=== PATIENT | female | born 1950 | race Hispanic/Latino ===

== ENCOUNTER 2019-09-02 14:20 | Inpatient (IN) | payer SELFPAY ==
[~2019-09-02] VITALS: Ht 162.6 cm; Wt 52.0 kg
[~2019-09-02 14:20] MED LIST: GLIPIZIDE5 M2 PO; KEFLEX500 M1 PO; METFORMIN500 MG PO
--- NOTE | 2019-09-02 14:25 | NUR ---
PT TO ROOM VIA WC FOR TRIAGE
--- NOTE | 2019-09-02 15:20 | NUR ---
PT RESTING ON STRETCHER; NO S/S OF DISTRESS NOTED; MONITORING DEVICES IN PLACE; VSS; WILL CONTINUE TO MONITOR
[2019-09-02 15:56] LABS: HEMATOCRIT 37.1 % (37.0-47.0); HEMOGLOBIN 12.3 g/dl (12.0-16.0); IMMATURE GRANULOCYTES 0.5 % (0.0-5.0); MEAN CELL VOLUME 91.4 fL CALC (80.0-100.0); MEAN CORPUSCULAR HGB 30.3 pG CALC (26.0-32.0); MEAN CORPUSCULAR HGB CONC 33.2 g/dL CAL (32.0-36.0); NEUT# 9.98 thou/uL (2.00-7.15); RED BLOOD COUNT 4.06 mill/uL (4.20-5.60); RED CELL DISTRI WIDTH 12.3 % (11.5-15.5)
[2019-09-02 16:12] LABS: ALBUMIN 2.9 g/dL (3.2-5.0); BILIRUBIN, TOTAL 0.7 mg/dL (0.0-1.4); CREATININE 1.2 mg/dL (0.5-1.0)
[2019-09-02 16:19] LABS: TOTAL PROTEIN 6.1 g/dL (6.3-8.2)
--- NOTE | 2019-09-02 16:20 | NUR ---
PT RESTING ON STRETCHER; NO S/S OF DISTRESS NOTED; FLUIDS GIVEN; PT DENIES ANY NEEDS AT THIS TIME; WILL CONTINUE TO MONITOR
--- NOTE | 2019-09-02 17:20 | NUR ---
PT RESTING ON STRETCHER; NO S/S OF DISTRESS NOTED; VSS; O2 NC IN PLACE; IV ANTIBIOTICS INFUSING; CALL LIGHT WITHIN REAHC; WILL CONTINUE TO MONITOR
--- NOTE | 2019-09-02 18:04 | NUR ---
PT RETURNED FROM RADIOLOGY; MONITORING DEVICES REAPPLIED; WILL CONTINUE TO MONITOR
--- NOTE | 2019-09-02 18:35 | NUR ---
PT MEDICATED AT THIS TIME FOR TEMP 101.4; PT ADVISED OF CONTINUED WAIT TIME; VSS; WILL CONTINUE TO MONITOR-
--- NOTE | 2019-09-02 18:57 | NUR ---
REPORT GIVEN TO MARIO TAYLOR
--- NOTE | 2019-09-02 19:10 | NUR ---
EKG COMPLETED AND SHOWN TO DR. VILLA. PT RESTING. VSS. RESP EASY REG. SR. ANTIBIOTICS INFUSING.
--- NOTE | 2019-09-02 19:29 | NUR ---
REPORT TO ALEXA MARTIN.
--- NOTE | 2019-09-02 19:36 | NUR ---
TO FLOOR VIA STRETCHER WITH O2 AND 2ND BAG OF ATIBIOTICS. PT HAS POCKET MONITOR ON. A/O. NAD.
[2019-09-02 19:50] VITALS: BP 99/56
[2019-09-02 19:50] LABS: URINE BILIRUBIN - DIPSTICK NEGATIVE (NEGATIVE); URINE BLOOD DIPSTICK SMALL (NEGATIVE); URINE COLOR YELLOW; URINE GLUCOSE - DIPSTICK NEGATIVE (NEGATIVE); URINE KETONE NEGATIVE (NEGATIVE); URINE LEUK ESTERASE NEGATIVE (NEGATIVE); URINE NITRITE - DIPSTICK NEGATIVE (Negative); URINE PROTEIN - DIPSTICK 100 mg/dL (NEG-TRACE); URINE SPECIFIC GRAVITY 1.025
--- NOTE | 2019-09-02 19:50 | NUR ---
PT ARRIVED TO THE FLOOR VIA STRETCHER ACCOMPANIED BY ED STAFF. RESPIRATIONS EVEN AND UNLABORED ON O2 @ 2L VIA NC. LUNGS SOUND DIMINISHED. PEDAL PULSES WEAK. PT DENIES ANY PAIN OR DISCOMFORT AT THIS TIME. IRIS FROM REGISTRATIONS TRANSLATED. PT ORIENTED TO ROOM AND CALL [employer]. SAFETY PRECAUTIONS IN PLACE. WILL CONTINUE TO MONITOR.
[2019-09-02 19:52] LABS: URINE SQUAMOUS EPITHELIAL CELL FEW EPI/hpf (0-FEW)
--- NOTE | 2019-09-03 00:05 | NUR ---
PT ARRIVED TO THE FLOOR VIA WHEEL CHAIR ACCOMPANIED BY ED STAFF. PT ALERT AND ORIETNED, PT AMBULATED FROM WHEEL CHAIR TO THE BED. RESPIRATIONS EVEN AND UNLABORED ON RA. ASSESSMENT COMPLETED AND VITAL SIGNS OBTAINED. PT DENIES ANY PAIN OR DISCOMFORT AT THIS TIME. PT ORIENTED TO ROOM AND CALL [employer]. SAFETY PRECAUTIONS IN PLACE, WILL CONTINUE TO MONITOR.
--- NOTE | 2019-09-03 00:50 | NUR ---
PT RESTING IN BED, NO S/S OF DISTRESS AT THIS TIME. SAFETY PRECAUTIONS IN PLACE. WILL CONTINUE TO MONTIOR.
[2019-09-03 00:59] VITALS: BP 91/59
[2019-09-03 05:15] VITALS: BP 131/78
--- NOTE | 2019-09-03 05:15 | NUR ---
PT RESTING IN BED RESPIRATIONS EVEN AND UNLABORED ON O2 @ 2L VIA NC. VS OBTAINED AND LABS DRAWN AT THIS TIME. SAFETY PRECAUTIONS IN PLACE. WILL CONTINUE TO MONTIOR.
[2019-09-03 05:56] LABS: HEMATOCRIT 36.3 % (37.0-47.0); HEMOGLOBIN 11.8 g/dl (12.0-16.0); IMMATURE GRANULOCYTES 0.7 % (0.0-5.0); MEAN CELL VOLUME 93.8 fL CALC (80.0-100.0); MEAN CORPUSCULAR HGB 30.5 pG CALC (26.0-32.0); MEAN CORPUSCULAR HGB CONC 32.5 g/dL CAL (32.0-36.0); NEUT# 12.39 thou/uL (2.00-7.15); RED BLOOD COUNT 3.87 mill/uL (4.20-5.60); RED CELL DISTRI WIDTH 12.4 % (11.5-15.5)
[2019-09-03 06:06] LABS: PROTHROMBIN TIME 10.1 SECONDS (9.0-12.5)
[2019-09-03 06:09] LABS: ALBUMIN 2.8 g/dL (3.2-5.0); CREATININE 1.3 mg/dL (0.5-1.0); POTASSIUM 4.5 mmol/l (3.5-5.1); TOTAL PROTEIN 5.9 g/dL (6.3-8.2)
[2019-09-03 06:15] LABS: BILIRUBIN, TOTAL 0.4 mg/dL (0.0-1.4)
[2019-09-03 06:45] LABS: C-REACTIVE PROTEIN 12.7 mg/dL (0-0.9)
--- NOTE | 2019-09-03 08:00 | NUR ---
PT RESTING IN BED, NO SIGNS OF DISTRESS NOTED, RESP EVEN AND UNLABORED. PROVIDED PT BREAKFAST, PT C/O HEADACHE, PT MEDICATED PER MAR. VITALS OBTAINED. DISCUSSED POC, ASSESSMENT COMPLETED, CALL LIGHT IN REACH,CONTINUE TO MONITOR.
[2019-09-03 08:04] VITALS: BP 122/65
--- NOTE | 2019-09-03 10:57 | NUR ---
MD AT BEDSIDE, PT SATS 95% ON 02 4L NC, PER MD REQUESTS TO KNOW PT ON RA, 02 REMOVED PT SATS DROPPED TO 87%RA. REPLACED NC, AND TITRATED 02 FOR PT TO REACH 92%. 02 @ 3L NC. RESP EVEN AND UNLABORED. NO SIGNS OF DISTRESS NOTED, VITALS OBTAINED. PT VOICES NO NEEDS OR COMPLAINTS AT THIS TIME, CALL LIGHT IN REACH,CONTINUE TO MONITOR.
[2019-09-03 11:17] VITALS: BP 104/61
--- NOTE | 2019-09-03 11:28 | NUR ---
PT SITTING IN BED EATING LUNCH, DISCUSSED SLIDING SCALE INSULIN, PT VERBALIZED UNDERSTANDING. CALL LIGHT IN REACH,CONTINUE TO MONITOR.
[2019-09-03 15:35] VITALS: BP 120/75
--- NOTE | 2019-09-03 17:09 | NUR ---
PT RESTING IN BED, DISCUSSED IV ANTIBIOTICS, PT VERBALIZED UNDERSTANDING. ROCEPHIN STARTED. PT VOICES NO NEEDS OR COMPLAINTS, CALL LIGHT IN REACH,CONTINUE TO MONITOR.
--- NOTE | 2019-09-03 17:38 | NUR ---
PT RESTING IN BED, DINNER TRAY PROVIDED, IV ZITHRO INITIATED. PT VOICES NO NEEDS OR COMPLAINTS, CALL LIGHT IN REACH,CONTINUE TO MONTIOR.
[2019-09-03 20:44] VITALS: BP 112/64
--- NOTE | 2019-09-03 21:20 | NUR ---
PT RESTING IN BED ALERT AND ORIETED. RESPIRATIONS EVEN AND UNLABORED ON O2 @ 2L VIA NC. LUNGS SOUND DIMINISHED. PEDAL PULSES WEAK. PT DENIES ANY PAIN OR DISCOMFORT AT THIS TIME. SAFETY PRECAUTIONS IN PLACE. WILL CONTINUE TO MONITOR.
[2019-09-04] VITALS (7 sets, daily range): BP systolic 106–147; BP diastolic 63–83
--- NOTE | 2019-09-04 00:07 | NUR ---
PT RESTING IN BED. NO S/S OF DISTRESS AT THIS TIME. TELE IN PLACE. WILL CONTINUE TO MONITOR.
--- NOTE | 2019-09-04 04:20 | NUR ---
PT RESTING IN BED. TELE IN PLACE. NO S/S OF DISTRESS AT THIS TIME. SAFETY PRECAUTIONSIN PLACE. WILL CONTINUE TO MONITOR.
[2019-09-04 05:08] LABS: HEMOGLOBIN 12.4 g/dl (12.0-16.0); IMMATURE GRANULOCYTES 1.4 % (0.0-5.0); MEAN CELL VOLUME 93.8 fL CALC (80.0-100.0); MEAN CORPUSCULAR HGB 29.8 pG CALC (26.0-32.0); MEAN CORPUSCULAR HGB CONC 31.8 g/dL CAL (32.0-36.0); NEUT# 7.75 thou/uL (2.00-7.15); RED BLOOD COUNT 4.16 mill/uL (4.20-5.60); RED CELL DISTRI WIDTH 12.4 % (11.5-15.5)
[2019-09-04 05:19] LABS: ALBUMIN 2.8 g/dL (3.2-5.0); BILIRUBIN, TOTAL 0.4 mg/dL (0.0-1.4); CREATININE 1.2 mg/dL (0.5-1.0); POTASSIUM 4.7 mmol/l (3.5-5.1); TOTAL PROTEIN 5.8 g/dL (6.3-8.2)
[2019-09-04 05:32] LABS: C-REACTIVE PROTEIN 14.8 mg/dL (0-0.9)
[2019-09-04 06:26] LABS: INTERNATIONAL NORMALIZED RATIO 0.9 RATIO (0.7-1.3); PROTHROMBIN TIME 9.8 SECONDS (9.0-12.5)
--- NOTE | 2019-09-04 08:45 | NUR ---
ASSESSMENT IS COMPLETED: IV SITE IS FREE FROM REDNESS OR EDEDEMA. HR IS REG,PULSES ARE STRONG X4, ABD IS SOFT WITH ACTIVE BS. BREATH SOUNDS ARE DIMINISHED AND CLEAR. TELE MONITOR IN PLACE. CONTINUE TO OSBERVE AND MONITOR.
--- NOTE | 2019-09-04 12:20 | NUR ---
DIPIKA SANDOVAL FROM [employer] INTERPRET RE: DIETARY AND DISCHARGE PLANNING PAPERS FROM JAROCHO CASAS RN. VERBALIZED UNDERSTANDING.
--- NOTE | 2019-09-04 12:45 | NUR ---
PT IS RELAXING IN BED WITH NO DISTRESS NOTED. IV SITE IS FREE FROM REDNESS OR EDEMA. CONTINUE TO OBSERVE AND MONITOR. TELE MONITOR IN PLACE.
--- NOTE | 2019-09-04 16:15 | NUR ---
PT IS RELAXING IN BED WITH NO DISTRESS NOTED. IV SITE IS FREE FROM REDNESS OR EDEMA.
--- NOTE | 2019-09-04 21:19 | NUR ---
PT MEDICATED ORDERS PROVIDE. ASSESSMENT COMPLETED AT THIS TIME. PT DENIES ANY NEEDS. NO S/O DISTRESS NOTED. WILL CONTINUE TO MONITOR.
[2019-09-05] VITALS (7 sets, daily range): BP systolic 115–136; BP diastolic 68–81
--- NOTE | 2019-09-05 02:00 | NUR ---
PT SLEEPING, NO S/O DISTRESS NOTED.
--- NOTE | 2019-09-05 04:35 | NUR ---
PT LABS DRAWN AND NEW IV SITE OBTAINED. PT TOLERATED WELL. DENIES ANY OTHER NEEDS AT THIS TIME. GOLF TECHNICIAN IN W/PT OBTAINING V/S
[2019-09-05 06:42] LABS: HEMATOCRIT 38.3 % (37.0-47.0); HEMOGLOBIN 12.4 g/dl (12.0-16.0); IMMATURE GRANULOCYTES 1.1 % (0.0-5.0); MEAN CELL VOLUME 94.3 fL CALC (80.0-100.0); MEAN CORPUSCULAR HGB 30.5 pG CALC (26.0-32.0); MEAN CORPUSCULAR HGB CONC 32.4 g/dL CAL (32.0-36.0); NEUT# 4.55 thou/uL (2.00-7.15); RED BLOOD COUNT 4.06 mill/uL (4.20-5.60); RED CELL DISTRI WIDTH 12.6 % (11.5-15.5)
[2019-09-05 07:15] LABS: ALBUMIN 2.7 g/dL (3.2-5.0); ALKALINE PHOSPHATASE 86 u/l (38-126); BUN 22 mg/dL (8-23); BUN/CREATININE RATIO 29 (12-20 (CALC)); C-REACTIVE PROTEIN 5.8 mg/dL (0-0.9); CARBON DIOXIDE 26 mmol/l (22-30); CHLORIDE 105 mmol/l (95-108); CREATININE 0.8 mg/dL (0.5-1.0); GFR > 60 ML/MIN (>=60 (CALC)); GFR FOR AFR.AMER. > 60 ML/MIN (>=60 (CALC)); SGOT/AST 32 u/l (9-36); SODIUM 137 mmol/l (137-146); TOTAL PROTEIN 5.9 g/dL (6.3-8.2)
[2019-09-05 07:30] LABS: BILIRUBIN, TOTAL 0.6 mg/dL (0.0-1.4)
--- NOTE | 2019-09-05 07:45 | NUR ---
ASSESSMENT IS COMPLETED: IV SITE IS FREE FROM REDNESS OR EDEMA. HR IS REG,PULSES ARE STRONG X4, ABD IS SOFT WITH ACTIVE BS. BREATH SOUNDS ARE CLEAR AND DIMINISHED. TELE MONITOR IN PLACE. CONTINUE TO OSBERVE AND MONITOR. PT IS ON O2@ 3LITERS WITH NC. C/O SORE THROAT THIS AM.
--- NOTE | 2019-09-05 09:00 | NUR ---
HAD DAYANA FROM [employer] INTERPRET TO PT RE: THROAT LOZENGE FROM SORE THROAT. VERBALIZED UNDERSTANDING.
--- NOTE | 2019-09-05 09:15 | NUR ---
SPOKE WITH RAÚL MONAHAN RE: PT/INR IF CAN BE ADDED ON TO THE D DIMER TUBE THAT WAS DRAWN THIS AM. INFORMED LAB
--- NOTE | 2019-09-05 12:15 | NUR ---
PT IS RELAXING IN BED WITH NO DISTRESS NOTED. IV SITE IS FREE FROM REDNESS OR EDEMA. TELE MONITOR IN PLACE. CONTINUE TO OBSERVE AND MONITOR.
--- NOTE | 2019-09-05 13:17 | NUR ---
POSITIVE COVID TEST RESULTS COMMUNICATED TO RAÚL OVIEDO APRN.
[2019-09-05 14:10] LABS: ANION GAP 12 (6-22 (CALC))
[2019-09-05 14:20] LABS: POTASSIUM 5.6 mmol/l (3.5-5.1)
--- NOTE | 2019-09-05 16:14 | NUR ---
PT IS RELAXING IN BED WITH NO DISTRESS NOTED. IV SITE IS FREE FROM REDNESS OR EDEMA.
--- NOTE | 2019-09-05 21:40 | NUR ---
PT ASSESSMENT COMPLETED AND MEDICATION ADMINISTERED ORDERS PROVIDE. NO S/O DISTRESS NOTED. PT DENIES ANY NEEDS, BUT HAS BEEN ENCOURAGED TO CALL. LUNG SOUNDS ARE DIMINISHED THROUGHTOUT, PT REPORTS RUNNY STOOL X2 EARLIER THIS DAY, DENIES DIFFICULTY URINATING. WILL CONTINUE TO MONITOR FOR NEEDS.
--- NOTE | 2019-09-05 23:50 | NUR ---
AIDE IN OBTAINING V/S, PT DENIES ANY NEEDS AT THIS TIME.
[2019-09-06 03:25] VITALS: BP 147/81
--- NOTE | 2019-09-06 03:30 | NUR ---
BLOOD DRAWN FOR LABS, PT TOLERATED WELL. NO S/O DISTRESS, DENIES ANY OTHER NEEDS. CALL LIGHT AT BEDSIDE AND PT ENCOURAGED TO CALL NEEDS ARISE.
[2019-09-06 05:20] LABS: HEMATOCRIT 37.6 % (37.0-47.0); HEMOGLOBIN 12.1 g/dl (12.0-16.0); IMMATURE GRANULOCYTES 1.3 % (0.0-5.0); MEAN CELL VOLUME 93.1 fL CALC (80.0-100.0); MEAN CORPUSCULAR HGB CONC 32.2 g/dL CAL (32.0-36.0); NEUT# 4.15 thou/uL (2.00-7.15); RED BLOOD COUNT 4.04 mill/uL (4.20-5.60)
[2019-09-06 05:48] LABS: ALBUMIN 2.5 g/dL (3.2-5.0); ALKALINE PHOSPHATASE 87 u/l (38-126); ANION GAP 8 (6-22 (CALC)); BILIRUBIN, TOTAL 0.4 mg/dL (0.0-1.4); BUN 22 mg/dL (8-23); BUN/CREATININE RATIO 35 (12-20 (CALC)); C-REACTIVE PROTEIN 4.6 mg/dL (0-0.9); CARBON DIOXIDE 27 mmol/l (22-30); CHLORIDE 106 mmol/l (95-108); CREATININE 0.6 mg/dL (0.5-1.0); GFR > 60 ML/MIN (>=60 (CALC)); GFR FOR AFR.AMER. > 60 ML/MIN (>=60 (CALC)); POTASSIUM 4.9 mmol/l (3.5-5.1); SGOT/AST 49 u/l (9-36); SODIUM 136 mmol/l (137-146); TOTAL PROTEIN 5.6 g/dL (6.3-8.2)
[2019-09-06 09:07] VITALS: BP 125/75
--- NOTE | 2019-09-06 09:20 | NUR ---
REPORT RECIEVED FROM MARIO RODRIGEZ. PT RESTING IN SEMI FOWLERS POSITION UPON ENTERING ROOM. INTRODUCED SELF TO PT AND DISCUSSED POC. PT IS HEBREW SPEAKING ONLY. ASSESSMENT AND VITALS COMPLETED AT THIS TIME. BP 125/75, HR 78, O2 93% ON 3L NC. LUNG SOUNDS ARE DIMINSHED. RESPIATIONS ARE EVEN AND UNLABORED. WITH NO SIGNS OF DISTRESS. HEART RHYTHM IS NORMAL WITH TELE IN PLACE. BOWEL SOUNDS ARE ACTIVE IN ALL QUADRANTS WITH NO TENDERNESS. RADIAL AND PEDAL PULSESE ARE STRONG WITRH NORMAL CAPILLARY REFILL. IV FLUSHED, SITE APPEARS HEALTHY AND PATENT. PT DENIES ANY PAIN OR DISCOMFORTS AT THIS TIME. ALL SAFTEY PRECAUTIONS ION PLACE WITH CALL LIGHT IN REACH.
[2019-09-06 11:29] VITALS: BP 120/79
--- NOTE | 2019-09-06 11:46 | NUR ---
WALKING TEST COMPLETED AT THIS TIME. RESTING PT O2 RESULTED IN 87 % ON ROOM AIR. WALKING PT SAT 85% ON ROOM AIR. RESTING BACK IN ROOM PT SAT 88% ON ROOM AIR. OXYGEN REAPPLIED TO PT AT THIS TIME, O2 SAT 95% ON 3 L NC. JHOANA NOTIFIED OF RESULTS. WILL CONTINUE TO [facility].
--- NOTE | 2019-09-06 16:00 | NUR ---
PT RESTING IN SEMI FOWLERS POSITION WATCXHING TV. BREATHING IS EVEN AND UNLABORED, NO SIGNS OF ANY DISTRESS.TELE IN PLACE. PT DENIES ANY PAIN AT THIS TIME. ALL SAFTEY P[RECAUTIONS IN PLACE WITH CALL LIGHT IN REACH. WILL CONTIUE TO MONITOR.
[2019-09-06 17:35] VITALS: BP 133/84
--- NOTE | 2019-09-06 18:20 | NUR ---
MULTIPLE ATTEMPTS MADE TO OBTAIN BLOOD SUGAR. ACCUCHECK MACHINES NOT WORKING, PT REFUSED BLOOD DRAW AND NOT ENOUGH BLOOD OBTAINED WITH FINGER STICK TO OBTAIN LAB.ACCUCHECK NOT OBTAINED AT THIS TIME.
--- NOTE | 2019-09-06 19:33 | NUR ---
REPORT FROM KENDALL BEEBE. PT RESTING IN BED. ALERT AND ORIENTED. NO APPARENT DISTRESS NOTED. DENIES ANY PAIN OR SOB. CAD ADMINISTRATOR IN PLACE. IV SITE FLUSHED, SITE APPEARS HEALTHY. O2 @ 2L/M VIA NC. DISCUSSED POC VIA CRYSTAL GROWING TECHNICIAN. PT VERBALIZED UNDERSTANDIND. PT UP OOB TO BATHROOM WITH STAND BY ASSIST. PT VOIDED WITHOUT DIFFICULTY. BACK IN BED PT DENIES ANY CURRENT WANTS OR NEEDS. CALL LIGHT WITHIN REACH. WILL CONTINUE TO MONITOR.
[2019-09-06 20:18] VITALS: BP 150/85
--- NOTE | 2019-09-06 23:48 | NUR ---
PT RESTING IN BED WITH EYES CLOSED. NO APPARENT DISTRESS NOTED. RESPIRATIONS EVEN AND UNLABORED. CALL LIGHT WITHIN REACH. WILL CONTINUE TO MONITOR.
[2019-09-07] VITALS (7 sets, daily range): BP systolic 118–144; BP diastolic 74–82
--- NOTE | 2019-09-07 03:01 | NUR ---
PT RESTING IN BED WITH EYES CLOSED. NO APPARENT DISTRESS NOTED. RESPIRATIONS EVEN AND UNLABORED. CALL LIGHT WITHIN REACH. WILL CONTINUE TO MONITOR.
--- NOTE | 2019-09-07 07:05 | NUR ---
REPORT RECEIVED FROM ABIEL HWANG.
--- NOTE | 2019-09-07 08:10 | NUR ---
PT RESTING IN SEMI FOWLERS POSITION,A&O X3;VS OBTAINED AND ASSESSMENT COMPLETED;PT NOTED TO BE MOSTLY LUXEMBOURGER SPEAKING, TRANSLATION PROVIDED BY ABIEL SOLANO;PT DENIES ANY CURRENT PAIN OR DISCOMFORTS,PAIN SCALE AND REPORTING EDUCATED;RESPIRATIONS EVEN AND UNLABORED ON O2 @ 3L VIA NC,DIMINISHED LUNG SOUNDS NOTED;NON-PRODUCTIVE COUGH AT TIMES;ABDOMEN SOFT ON PALPATION AND ACTIVE IN ALL 4 QUADRANTS;STRONG PEDAL PULSES;SKIN INTACT;TELE MONITORING IN PLACE;#20G TO LFA FLUSHED AND PATENT,SITE APPEARS HEALTHY;ACCUCHECK 195,PT COVERAGED WITH SLIDING SCALE NOVOLOG PER ORDER;PT REMAINS IN ISOLATION FOR POSITIVE COVID 19 RESULTS;PT DENIES ANY ADDITIONAL NEEDS AND IS ENCOURAGED TO CALL FOR ASSISTANCE IF NEEDED;FALL PRECAUTIONS IN PLACE WITH CALL LIGHT IN REACH;WILL CONTINUE TO MONITOR
--- NOTE | 2019-09-07 11:10 | NUR ---
PT RESTING IN SUPINE POSITION;RESPIRATIONS EVEN AND UNLABORED ON O2 @ 3L VIA NC, NO S/S OF DISTRESS NOTED;PT DENIES ANY CURRENT PAIN OR NEEDS;TELE MONITORING IN PLACE;IV SITE PATENT;ACCUCHECK 233, PT COVERED WITH SLIDING SCALE NOVOLOG PER ORDER;ASSESSMENT REMAINS UNCHANGED AT THIS TIME;PT ENCOURAGED TO CALL FOR ASSISTANCE IF NEEDED;FALL PRECAUTIONS REMAIN IN PLACE WITH CALL LIGHT IN REACH;WILL CONTINUE TO MONITOR
--- NOTE | 2019-09-07 11:59 | NUR ---
AT BEDSIDE DISCUSSING POC WITH PT.TRANSLATION PROVIDED BY ABIEL SOLANO.
--- NOTE | 2019-09-07 15:45 | NUR ---
PT RESTING IN SEMI FOWLERS POSITION;RESPIRATIONS REMAIN EVEN AND UNLABORED ON O2 @ 3L VIA NC;PT DENIES ANY CURRENT PAIN OR DISCOMFORTS;VS BEING OBTAINED AT THIS TIME BY ANUSHKA RAHMAN;TELE MONITORING IN PLACE;IV SITE PATENT;PT ENCOURAGED TO CALL FOR ASSISTANCE IF NEEDED;CALL LIGHT IN REACH;WILL CONTINUE TO MONITOR
--- NOTE | 2019-09-07 19:13 | NUR ---
PT RESTING IN BED, NO SIGNS OF DISTRESS NOTED, IV ANTIBIOTIC INFUSION COMPLETED, IV SL. DISCUSSED POC, RESP EVEN AND UNLABORED. PT ON 3L NC, PT ALERT AND ORIENTED 3, NO EDEMA. ASSESSMENT COMPLETED, CALL LIGHT IN REACH,CONTINUE TO MONITOR.
--- NOTE | 2019-09-08 | NUR ---
PT RESTING IN BED, NO SIGNS OF DISTRESS NOTED, RESP EVEN AND UNLABORED. ROLL OF TOILET PAPER PROVIDED, PER PT REQUEST. CALL LIGHT IN REACH,CONTINUE TO MONITOR.
[2019-09-08 04:39] VITALS: BP 130/73
--- NOTE | 2019-09-08 04:39 | NUR ---
PT RESTING IN BED WITH EYES CLOSED, EASILY AROUSED TO VERBAL STIMULI, VITALS OBTAINED, AM LABS DRAW, PT TOLERATED WELL. APPLE JUICE PROVIDED PER PT REQUEST. CALL LIGHT IN REACH,CONTINUE TO MONITOR.
[2019-09-08 05:11] LABS: BASO% 1 % (0-3); EOS% 5 % (0-8); HEMATOCRIT 36.4 % (37.0-47.0); HEMOGLOBIN 11.8 g/dl (12.0-16.0); LYMPH% 23 % (15-41); MEAN CELL VOLUME 93.1 fL CALC (80.0-100.0); MEAN CORPUSCULAR HGB 30.2 pG CALC (26.0-32.0); MEAN CORPUSCULAR HGB CONC 32.4 g/dL CAL (32.0-36.0); MONO% 9 % (2-13); NEUT% 61 % (42-76); RED BLOOD COUNT 3.91 mill/uL (4.20-5.60); RED CELL DISTRI WIDTH 11.9 % (11.5-15.5)
[2019-09-08 05:14] LABS: PLATELET COUNT 377 thou/uL (130-400)
[2019-09-08 05:46] LABS: ALBUMIN 2.7 g/dL (3.2-5.0); ALKALINE PHOSPHATASE 103 u/l (38-126); ANION GAP 10 (6-22 (CALC)); BUN 30 mg/dL (8-23); BUN/CREATININE RATIO 43 (12-20 (CALC)); C-REACTIVE PROTEIN 2.3 mg/dL (0-0.9); CARBON DIOXIDE 26 mmol/l (22-30); CHLORIDE 105 mmol/l (95-108); CREATININE 0.7 mg/dL (0.5-1.0); GFR > 60 ML/MIN (>=60 (CALC)); GFR FOR AFR.AMER. > 60 ML/MIN (>=60 (CALC)); POTASSIUM 4.6 mmol/l (3.5-5.1); SGOT/AST 26 u/l (9-36); SODIUM 136 mmol/l (137-146); TOTAL PROTEIN 5.7 g/dL (6.3-8.2)
[2019-09-08 05:50] LABS: BILIRUBIN, TOTAL 0.2 mg/dL (0.0-1.4)
[2019-09-08 07:54] VITALS: BP 123/80
--- NOTE | 2019-09-08 07:54 | NUR ---
PT SITTING ON THE SIDE OF THE BED EATING BREAKFAST. A&O X3. NO DISTRESS NOTED. O2 VIA NC @3L IN PLACE. PT REPORTS TO BE FEELING A LITTLE BETTER COMPARED TO YESTERDAY. STATES THAT SHE IS STILL FEELING EXCERTIONAL SOB WHEN AMBULATING TO AND FROM THE BATHROOM ESPECIALLY WHEN SHE IS HAVING A COUGHING SPELL. NO OTHER NEEDS AT THIS TIME. ASSESSMENT COMPLETED. DISCUSSED POC. CALL LIGHT IN REACH. CONTINUE TO MONITOR.
[2019-09-08 11:07] VITALS: BP 132/74
--- NOTE | 2019-09-08 14:00 | NUR ---
PT SITTING ON THE SIDE OF THE BED. NO NEEDS AT THIS TIME. NO DISTRESS NOTED. CALL LIGHT IN REACH. CONTINUE TO MONITOR
[2019-09-08 15:17] VITALS: BP 126/75
[2019-09-08 19:05] VITALS: BP 120/72
--- NOTE | 2019-09-08 20:47 | NUR ---
PT MEDICATED ORDERS PROVIDE. PT DENIES ANY NEEDS, ONLY ASKED FOR DIET SODA. ASSESSMENT COMPLETED AT THIS TIME. LUNG SOUNDS ARE DIMINISHED THROUGHOUT, NEURO'S INTACT, NO EDEMA NOTED AT THIS TIME. CALL LIGHT W/IN REACH AND PT ENCOURAGED TO CALL NEEDS ARISE.
[2019-09-08 23:30] VITALS: BP 124/68
--- NOTE | 2019-09-09 00:05 | NUR ---
AIDE IN W/PT, V/S ASSESSED. NO S/O DISTRESS NOTED, PT DENIES ANY NEEDS AT THIS TIME. CALL LIGHT AT SIDE AND PT ENCOURAGED TO CALL.
--- NOTE | 2019-09-09 02:15 | NUR ---
PT SLEEPING, NO S/O DISTRESS NOTED.
[2019-09-09 03:30] VITALS: BP 133/80
--- NOTE | 2019-09-09 04:20 | NUR ---
AIDE IN OBTAINING V/S, NO S/O DISTRESS. PT DENIES ANY NEEDS AT THIS TIME. CALL LIGHT AT SIDE.
[2019-09-09 08:00] VITALS: BP 134/79
--- NOTE | 2019-09-09 08:29 | NUR ---
PT SEEN AT REST IN THE BED IN NO DISTRESS. LUNGS CLEAR BUT DIMINISHED THROUGHOUT, 3 LPM NC. NO DISTRESS, NO COMPLAINTS. PT HOPES TO GO HOME TODAY.
[2019-09-09] MEDS ORDERED: METFORMIN500 M2 PO (09:45)
[2019-09-09 11:00] VITALS: BP 131/63
--- NOTE | 2019-09-09 12:57 | NUR ---
PT SEEN BY DR BARRIENTOS AND RAÚL COULTER TODAY, IS DISCHARGED TO HOME. PT VERBALIZES UNDERSTANDING OF DC INSTRUCTIONS, IV REMOVED, PT CALLS FOR HER RIDE TO COME PICK HER UP. PT HAS HAD OXYGEN TANK DELIVERED, WILL CONTINUE SHE GOES HOME.
== END 2019-09-09 13:12 | disposition home or self-care (01) | DRG 177 ==
LOC: ED 14:20 → ED-I 18:37 → ED 18:47 → ED-I 18:48 → MS2 19:05
PROVIDERS: Emergency Medicine; Internal Medicine; Nurse Practitioner Family; ADMIT Internal Medicine; ATTEND Internal Medicine
DX: U07.1 COVID-19 (principal); J12.89 Other viral pneumonia; J96.01 Acute respiratory failure with hypoxia; N17.9 Acute kidney failure, unspecified; E11.65 Type 2 diabetes mellitus with hyperglycemia; T38.3X6A Underdosing of insulin and oral hypoglycemic [antidiabetic] drugs, initial encounter; Z91.128 Patient's intentional underdosing of medication regimen for other reason
CPT/HCPCS: J1650; Q9967

== ENCOUNTER 2020-12-02 12:08 | Emergency (ER) | payer OTHER ==
[~2020-12-02] VITALS: Ht 162.6 cm; Wt 68.0 kg
[~2020-12-02 12:08] MED LIST changes: +METFORMIN500 M2 PO
[2020-12-02] MEDS ORDERED: CIPROFLOXACN500 MG PO (18:51)
[2020-12-02] MEDS ORDERED: KEFLEX500 MG PO (18:51)
[2020-12-02 19:31] VITALS: BP 173/83
== END 2020-12-02 19:32 | disposition home or self-care (01) | DRG 603 ==
LOC: ED 12:08
DX: L03.116 Cellulitis of left lower limb (principal); E11.9 Type 2 diabetes mellitus without complications; I10 Essential (primary) hypertension; T50.916A Underdosing of multiple unspecified drugs, medicaments and biological substances, initial encounter; Z91.128 Patient's intentional underdosing of medication regimen for other reason

== ENCOUNTER 2021-07-03 19:44 | Emergency (ER) | payer SELFPAY ==
[~2021-07-03 19:44] MED LIST changes: +CIPROFLOXACN500 MG PO; +KEFLEX500 MG PO
[2021-07-04] MEDS ORDERED: BACTRIM DS1 TAB PO (11:55)
== END 2021-07-03 20:57 | disposition left against medical advice (07) | DRG 951 ==
LOC: ED 19:44 → LWOBS 20:56
DX: Z53.21 Procedure and treatment not carried out due to patient leaving prior to being seen by health care provider (principal)

== ENCOUNTER 2021-07-04 09:20 | Emergency (ER) | payer SELFPAY ==
[~2021-07-04] VITALS: Ht 162.6 cm; Wt 68.0 kg
[2021-07-04 11:45] LABS: URINE BILIRUBIN - DIPSTICK NEGATIVE (NEGATIVE); URINE BLOOD DIPSTICK MODERATE (NEGATIVE); URINE COLOR YELLOW; URINE GLUCOSE - DIPSTICK >=1000 mg/dL (NEGATIVE); URINE KETONE NEGATIVE (NEGATIVE); URINE LEUK ESTERASE NEGATIVE (NEGATIVE); URINE NITRITE - DIPSTICK NEGATIVE (Negative); URINE PROTEIN - DIPSTICK >=300 mg/dL (NEG-TRACE); URINE UROBILINOGEN - DIPSTICK 0.2 E.U./dL (0.2)
[2021-07-04 11:47] LABS: URINE BACTERIA MANY hpf; URINE WBC 50-100 WBC/hpf (0-5)
[2021-07-04] MEDS ORDERED: BACTRIM DS1 TAB PO (11:55)
[2021-07-04 12:02] VITALS: BP 145/80
== END 2021-07-04 12:07 | disposition home or self-care (01) | DRG 690 ==
LOC: ED 09:20
DX: N39.0 Urinary tract infection, site not specified (principal); E11.9 Type 2 diabetes mellitus without complications; T38.3X6A Underdosing of insulin and oral hypoglycemic [antidiabetic] drugs, initial encounter; I10 Essential (primary) hypertension; B96.20 Unspecified Escherichia coli [E. coli] as the cause of diseases classified elsewhere; Z91.128 Patient's intentional underdosing of medication regimen for other reason; Z20.822 Contact with and (suspected) exposure to COVID-19

== ENCOUNTER 2021-09-22 08:16 | Emergency (ER) | payer SELFPAY ==
[~2021-09-22] VITALS: Ht 162.6 cm; Wt 54.4 kg
[~2021-09-22 08:16] MED LIST changes: +BACTRIM DS1 TAB PO
[2021-09-22 08:45] VITALS: BP 157/96
[2021-09-22 09:00] VITALS: BP 165/88
[2021-09-22 09:15] VITALS: BP 150/90
[2021-09-22] MEDS ORDERED: MOTRIN400 MG/TAB PO (09:19)
[2021-09-22 09:25] VITALS: BP 150/90
== END 2021-09-22 09:37 | disposition home or self-care (01) | DRG 556 ==
LOC: ED 08:16
DX: M25.561 Pain in right knee (principal); I10 Essential (primary) hypertension; E11.9 Type 2 diabetes mellitus without complications; W18.30XA Fall on same level, unspecified, initial encounter

== ENCOUNTER 2022-04-16 19:55 | Emergency (ER) | payer SELFPAY ==
[~2022-04-16] VITALS: Ht 162.6 cm; Wt 50.0 kg
[2022-04-16] VITALS (12 sets, daily range): BP systolic 151–198; BP diastolic 82–102
[~2022-04-16 19:55] MED LIST changes: +MOTRIN400 MG/TAB PO
[2022-04-16 20:23] LABS: BASO% 0.5 % (0-3); EOS% 3.7 % (0-8); HEMATOCRIT 33.7 % (37.0-47.0); HEMOGLOBIN 11.1 g/dl (12.0-16.0); IMMATURE GRANULOCYTES 0.2 % (0.0-5.0); LYMPH% 12.4 % (15-41); MEAN CELL VOLUME 95.5 fL CALC (80.0-100.0); MEAN CORPUSCULAR HGB 31.4 pG CALC (26.0-32.0); MEAN CORPUSCULAR HGB CONC 32.9 g/dL CAL (32.0-36.0); MONO% 6.2 % (2-13); NEUT# 7.13 thou/uL (2.00-7.15); RED BLOOD COUNT 3.53 mill/uL (4.20-5.60); RED CELL DISTRI WIDTH 12.4 % (11.5-15.5)
[2022-04-16 20:33] LABS: ALBUMIN 3.6 g/dL (3.2-5.0); BILIRUBIN, TOTAL 0.2 mg/dL (0.0-1.4); CREATININE 1.5 mg/dL (0.5-1.0); TOTAL PROTEIN 6.8 g/dL (6.3-8.2)
== END 2022-04-16 22:25 | disposition home or self-care (01) | DRG 639 ==
LOC: ED 19:55
PROVIDERS: Family Medicine
DX: E11.649 Type 2 diabetes mellitus with hypoglycemia without coma (principal); I10 Essential (primary) hypertension; N28.9 Disorder of kidney and ureter, unspecified; Z79.84 Long term (current) use of oral hypoglycemic drugs

== ENCOUNTER 2022-04-26 11:46 | Emergency (ER) | payer SELFPAY ==
[~2022-04-26] VITALS: Ht 162.6 cm; Wt 72.0 kg
[2022-04-26 12:31] VITALS: BP 165/96
[2022-04-26 13:00] VITALS: BP 147/80
[2022-04-26 13:30] VITALS: BP 142/75
[2022-04-26 14:01] VITALS: BP 174/89
[2022-04-26] MEDS ORDERED: TRAMADOL HYDROC50 M1 PO (14:01)
[2022-04-26 14:15] VITALS: BP 174/89
== END 2022-04-26 14:45 | disposition home or self-care (01) | DRG 563 ==
LOC: ED 11:46
PROC: 2W3TX1Z Immobilization of Left Foot using Splint (ICD-10-PCS; principal; 2022-04-26)
DX: S82.842A Displaced bimalleolar fracture of left lower leg, initial encounter for closed fracture (principal); E11.9 Type 2 diabetes mellitus without complications; I10 Essential (primary) hypertension; X50.1XXA Overexertion from prolonged static or awkward postures, initial encounter; Z79.84 Long term (current) use of oral hypoglycemic drugs

== ENCOUNTER 2022-07-16 08:47 | Emergency (ER) | payer SELFPAY ==
[2022-07-16] VITALS (20 sets, daily range): BP systolic 158–221; BP diastolic 90–131
[~2022-07-16] VITALS: Ht 162.6 cm; Wt 54.4 kg
[~2022-07-16 08:47] MED LIST changes: +TRAMADOL HYDROC50 M1 PO
== END 2022-07-16 14:12 | disposition home or self-care (01) | DRG 563 ==
LOC: ED 08:47
DX: S93.05XA Dislocation of left ankle joint, initial encounter (principal); S82.842A Displaced bimalleolar fracture of left lower leg, initial encounter for closed fracture; I10 Essential (primary) hypertension; E11.9 Type 2 diabetes mellitus without complications; X50.0XXA Overexertion from strenuous movement or load, initial encounter; Y93.89 Activity, other specified; Y92.74 Orchard as the place of occurrence of the external cause; Y99.0 Civilian activity done for income or pay; T46.5X6A Underdosing of other antihypertensive drugs, initial encounter; T38.3X6A Underdosing of insulin and oral hypoglycemic [antidiabetic] drugs, initial encounter; Z91.128 Patient's intentional underdosing of medication regimen for other reason

== ENCOUNTER 2022-07-28 14:38 | Emergency (ER) | payer SELFPAY ==
[~2022-07-28] VITALS: Ht 162.6 cm; Wt 54.4 kg
[2022-07-28] VITALS (15 sets, daily range): BP systolic 141–269; BP diastolic 84–147
[2022-07-28] MEDS ORDERED: NAPROXEN500 MG PO (15:05)
== END 2022-07-28 17:44 | disposition home or self-care (01) | DRG 563 ==
LOC: ED 14:38
PROC: 2W3RX1Z Immobilization of Left Lower Leg using Splint (ICD-10-PCS; principal; 2022-07-28)
DX: S82.892A Other fracture of left lower leg, initial encounter for closed fracture (principal); I10 Essential (primary) hypertension; E11.9 Type 2 diabetes mellitus without complications; W19.XXXA Unspecified fall, initial encounter; Y93.89 Activity, other specified; Y92.73 Farm field as the place of occurrence of the external cause; Y99.0 Civilian activity done for income or pay; Z91.199 Patient's noncompliance with other medical treatment and regimen due to unspecified reason